=== PATIENT | female | born 1950 | race Caucasian/White ===

== ENCOUNTER 2020-03-29 11:05 | Outpatient (CLI) | payer MEDICARE, SELFPAY ==
--- NOTE | ~2020-03-29 | US_ITS ---
EXAMINATION: US venous doppler LE RT DATE: 03/29/2020 12:43 INDICATION: Right lower limb pain TECHNIQUE: Cespedes scale images without and with compression and Doppler images of the right lower extre mity veins were obtained. COMPARISON: None FINDINGS: The right common femoral vein, profunda femoral vein, femoral vein, popliteal vein, peronea l trunk, posterior tibial veins, and greater saphenous vein are patent. IMPRESSION: 1. Patent right lower extremity veins. No evidence of deep venous thrombosis. Reviewed, dictated and finalized at location B.
== END 2020-03-29 11:06 | disposition home or self-care (01) ==
PROVIDERS: PCP Family Medicine; Visit Provider Physician Assistant
DX: M79.604 Pain in right leg (principal); M25.512 Pain in left shoulder
CPT/HCPCS: 93971

== ENCOUNTER 2021-02-24 10:29 | Outpatient (CLI) | payer MEDICARE, SELFPAY ==
--- NOTE | ~2021-02-24 | MM_ITS ---
EXAMINATION: MM screening [facility] BI w obie HISTORY: Screening TECHNIQUE: Craniocaudal and mediolateral oblique 3-D tomosynthesis images were obtained and synthetic 2-D images were generated. CAD analysis was submitted and interpreted. COMPARISON: Comparison to multiple prior studies sequentially, with oldest reviewed study dated 02/2014. BREAST PARENCHYMAL COMPOSITION: There are scattered areas of fibroglandular density. FINDINGS: There is no evidence of suspicious mass, calcification, or architectural distortion to sugg est malignancy in either breast. There has been no suspicious interval change. IMPRESSION: 1. No mammographic evidence of malignancy. 2. Recommend routine screening mammography in one year. BI-RADS Category 1: Negative Reviewed, dictated and finalized at location A.
== END 2021-02-24 10:30 | disposition home or self-care (01) ==
LOC: ANHIMG 10:33
PROVIDERS: PCP Family Medicine; Visit Provider Physician Assistant
DX: Z12.31 Encounter for screening mammogram for malignant neoplasm of breast (principal)
CPT/HCPCS: 77063; 77067

== ENCOUNTER 2021-04-20 16:37 | Outpatient (CLI) | payer MEDICARE, SELFPAY ==
--- NOTE | ~2021-04-20 | DEXA_ITS ---
Bone Density Report Name: Debbie Gutierrez Age: 70 Sex: Female Ethnicity: White Date of : 1950 Indication: postmenopausal; rheumatoid arthritis; Referring Provider: Judy, Neelima Stockton Study: Bone densitometry was performed. Exam Date: April 20, 2021 Accession number: [id number] Bone Density: Region BMD T-score Z-score Classification AP Spine (L1-L4) 1.048 0.0 2.0 Normal Femoral Neck (Left) 0.814 -0.3 1.4 Normal Total Hip (Left) 1.034 0.8 2.2 Normal Total Hip Bilateral Avg 1.013 0.6 2.0 Normal Femoral Neck (Right) 0.845 0.0 1.7 Normal Total Hip (Right) 0.991 0.4 1.8 Normal World Health Organization criteria for BMD impression classify patients as: Normal (T-score at or above -1.0), Osteopenia (T-score between -1.0 and -2.5), or Osteoporosis (T-score at or below -2.5). 10-year Fracture Risk: FRAX not reported because: All T-scores for Spine Total, Hip Total, Femoral Neck at or above -1.0 Previous Exams: Region Exam Age BMD T-score BMD Change BMD Change Date g/cm2 vs Baseline vs Previous AP Spine(L1-L4) 04/20/2021 70 1.048 0.0 -0.014(-1.4%)# 0.007(0.7%) 07/25/2017 66 1.041 -0.1 -0.021(-2.0%)# -0.002(-0.2%)# 05/03/2010 59 1.043 0.0 -0.019(-1.8%) -0.019(-1.8%) 07/09/2005 54 1.062 0.1 Total Hip(Left) 04/20/2021 70 1.034 0.8 0.088(9.3%)# 0.014(1.3%) 07/25/2017 66 1.020 0.6 0.074(7.8%)# 0.052(5.4%)# 05/03/2010 59 0.968 0.2 0.022(2.3%) 0.022(2.3%) 07/09/2005 54 0.946 0.0 Total Hip(Right) 04/20/2021 70 0.991 0.4 0.028(3.0%)# -0.029(-2.8%)* 07/25/2017 66 1.020 0.6 0.057(6.0%)# 0.064(6.7%)# 05/03/2010 59 0.956 0.1 -0.007(-0.7%) -0.007(-0.7%) 07/09/2005 54 0.963 0.2 *Denotes significance at 95% confidence level, LSC for AP Spine = 0.022 g/cm2, LSC for Total Hip = 0.027 g/cm2 Clinical Information Provided by Patient: Has rheumatoid arthritis Has used the following medications: Vitamin D, Calcium Patient maximum height was 70 Menopause Age: 57 Drinks caffeinated beverages Onset of menses at age 15 Number of children 2 Impression: The patient has normal bone mass. The BMD for the Total Hip(Right) decreased, changing by -2.8% since the last DXA exam. Discussion: BONE DENSITY IS ABOVE THE MINIMUM DESIRABLE LEVEL AT ALL SKELETAL SITES TESTED. This patient?s bone mineral density is above the minimum desirable level (T-score -1.0 or be
== END 2021-04-20 16:38 | disposition home or self-care (01) ==
LOC: ANHIMG 16:38
PROVIDERS: PCP Family Medicine; Visit Provider Internal Medicine
DX: Z78.0 Asymptomatic menopausal state (principal); M35.01 Sjogren syndrome with keratoconjunctivitis; E03.8 Other specified hypothyroidism; Z51.81 Encounter for therapeutic drug level monitoring; E55.9 Vitamin D deficiency, unspecified; Z11.59 Encounter for screening for other viral diseases; M85.89 Other specified disorders of bone density and structure, multiple sites
CPT/HCPCS: 77080

== ENCOUNTER 2022-03-16 14:09 | Outpatient (CLI) | payer MEDICARE, SELFPAY ==
--- NOTE | ~2022-03-16 | MM_ITS ---
EXAMINATION: MM screening [facility] BI w obie HISTORY: Screening TECHNIQUE: Craniocaudal and mediolateral oblique 3-D tomosynthesis images were obtained and synthetic 2-D images were generated. CAD analysis was submitted and interpreted. COMPARISON: Comparison to multiple prior studies sequentially, with oldest reviewed study dated 02/2014. BREAST PARENCHYMAL COMPOSITION: There are scattered areas of fibroglandular density. FINDINGS: There is no evidence of suspicious mass, calcification, or architectural distortion to sugg est malignancy in either breast. There has been no suspicious interval change. IMPRESSION: 1. No mammographic evidence of malignancy. 2. Recommend routine screening mammography in one year. BI-RADS Category 1: Negative Reviewed, dictated and finalized at location A.
== END 2022-03-16 14:10 | disposition home or self-care (01) ==
LOC: ANHIMG 14:11
PROVIDERS: PCP Family Medicine; Visit Provider Physician Assistant
DX: Z12.31 Encounter for screening mammogram for malignant neoplasm of breast (principal)
CPT/HCPCS: 77063; 77067

== ENCOUNTER → 2022-04-12 12:38 | Outpatient (CLI) | payer MEDICARE, SELFPAY ==
--- NOTE | ~2022-04-12 | XR_ITS ---
XR hand LT min 3V DATE: 04/12/2022 12:58 INDICATION: Left hand and wrist pain TECHNIQUE: 3 views COMPARISON: 05/10/2018 bilateral hands FINDINGS: There is severe joint space narrowing and eburnation at the triscaphe joint consistent with osteoarthritis. Is mild osteoarthritic change at the interphalangeal joints and first carpometacarpa l joint. No fracture or dislocation, periosteal reaction or bone destruction. IMPRESSION: Polyarticular osteoarthritis Reviewed, dictated and finalized at location B.
--- NOTE | ~2022-04-12 | XR_ITS ---
XR wrist LT w scaphoid DATE: 04/12/2022 12:58 INDICATION: Left wrist and hand pain TECHNIQUE: 4 views COMPARISON: 05/10/2018 bilateral hands FINDINGS: There is severe narrowing and eburnation at the triscaphe joint consistent with severe oste oarthritis. No fracture or dislocation, periosteal reaction or bone destruction is detected. No erosive change. 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
== END ==
PROVIDERS: PCP Family Medicine; Visit Provider Family Medicine
DX: M25.532 Pain in left wrist (principal); M25.542 Pain in joints of left hand; M19.042 Primary osteoarthritis, left hand
CPT/HCPCS: 73110; 73130

== ENCOUNTER 2023-05-06 13:41 | Outpatient (CLI) | payer MEDICARE, SELFPAY ==
--- NOTE | ~2023-05-06 | MM_ITS ---
EXAMINATION: MM screening [facility] BI w obie HISTORY: Screening TECHNIQUE: Craniocaudal and mediolateral oblique 3-D tomosynthesis images were obtained and synthetic 2-D images were generated. CAD analysis was submitted and interpreted. COMPARISON: Comparison to multiple prior studies sequentially, with oldest reviewed study dated 03/08. BREAST PARENCHYMAL COMPOSITION: There are scattered areas of fibroglandular density. FINDINGS: There is no evidence of suspicious mass, calcification, or architectural distortion to sugg est malignancy in either breast. There has been no suspicious interval change. IMPRESSION: 1. No mammographic evidence of malignancy. 2. Recommend routine screening mammography in one year. BI-RADS Category 1: Negative Reviewed, dictated and finalized at location A.
== END 2023-05-06 13:42 | disposition home or self-care (01) ==
LOC: ANHIMG 13:45
PROVIDERS: PCP Emergency Medicine; Visit Provider Emergency Medicine
DX: Z12.31 Encounter for screening mammogram for malignant neoplasm of breast (principal)
CPT/HCPCS: 77063; 77067

== ENCOUNTER 2024-02-20 18:02 | Emergency (ER) | payer MEDICARE, SELFPAY ==
[2024-02-20 18:17] VITALS: BP 155/68; PULSE 60; RESP 18; TEMP 36.4; O2SAT 100
--- NOTE | 2024-02-20 18:17 | ECG_ITS ---
Test Date: 2024-02-20 18:30:31 Measurements Intervals [place] Rate: 58 P: 44 [place]: 161 QRS: -2 QRSD: 92 T: 33 QT: 452 QTc: 446 Interpretive Statements SINUS BRADYCARDIA NONSPECIFIC ST SEGMENT ABNORMALITY ABNORMAL ECG No previous ECG available for comparison Electronically Signed On 02-21-2024 11:16:08 CDT by Jimbo Mcgowan M.D.
--- NOTE | 2024-02-20 18:35 | PC.NURSE ---
1830 EKG complete. Pt is declining EMS trnsfer to ED. Pt called her son and he will take her to [place] ED. Rates pain at 8/10. VSS
--- NOTE | 2024-02-20 18:41 | ED.CHESTPAIN ---
HPI - Chest Pain General Chief Complaint: Chest Pain Stated Complaint: chest pain Time Seen by Provider: 02/20/24 18:17 Source: patient and RN notes reviewed Mode of arrival: ambulatory Limitations: no limitations History of Present Illness HPI narrative: Patient presents today complaining of lower sternal chest pain/epigastric pain, nausea that was present when she woke up from a nap at 2:00 p.m. this afternoon. Denies shortness of breath, dizziness, lightheadedness, numbness or tingling in the extremities. Denies any radiation of the pain to the back, jaw, arms. Currently rates her pain 8/10 and has tried Pepto-Bismol, Rolaids, Tums without relief. Pain increases with deep breath. Patient has history of hypertension and high cholesterol for which she takes atenolol, hydrochlorothiazide, and atorvastatin. She does have history of GERD for which she takes Pepcid. History of cholecystectomy. Related Data Home Medications Medication Instructions Recorded Confirmed cetirizine 10 mg tablet (Zyrtec) 10 mg PO DAILY 05/29/19 01/14/24 lysine 500 mg tablet 500 mg PO DAILY 05/29/19 01/14/24 multivitamin 1 tablet PO DAILY 05/29/19 01/14/24 Allergies Allergy/AdvReac Type Severity Reaction Status Date / Time grass pollen Allergy Unknown Sneezing Verified 01/14/24 10:05 pollen extracts Allergy Unknown Sneezing Verified 01/14/24 10:05 Review of Systems Review of Systems: CONSTITUTIONAL: Denies body aches, fever, chills, or sweats. EYES: Denies visual changes, redness, or discharge. ENT: Denies rhinorrhea, congestion, sore throat, or otalgia. CARDIOVASCULAR: Denies palpitations, or edema.+ chest pain RESPIRATORY: Denies cough or dyspnea. GASTROINTESTINAL: Denies vomiting, or diarrhea.+ abdominal pain, nausea GENITOURINARY: Denies dysuria or hematuria. SKIN: Denies rash, itching, or wounds. MUSCULOSKELETAL: Denies back pain, joint pain, or myalgia. NEUROLOGIC: Denies headache, numbness, tingling, or weakness. PSYCH: Denies depression or anxiety. [facility] Past Medical History Medical History GERD (gastroesophageal reflux disease) Hyperlipidemia Hypertension Hypothyroid Surgical History Surgical History History of cholecystectomy Family History Family History Father Diabetes mellitus Hypertension Mother Hypertension Family history of rheumatoid arthritis Social History Social History Smoking status: Never smoker Second hand tobacco smoke exposure: No Alcohol intake: current Substance use type: does not use Lack of Transportation: No Lack of Food: Never True Current Housing: I Have Housing Concerned About Future Housing: No Difficulty Paying Gas/Electric Bills: No Difficulty Paying for Meds: No Currently Unemployed: No Education: Bachelor's Degree Difficulty w/ Childcare or Family Care: No Gender identity (if verbalized by the patient): Female Comments At time of signature, I have reviewed and agree with nursing past medical, surgical, social and family history unless otherwise noted. Please see nursing chart for further information. There is no relevant family history pertinent to the presenting complaint Exam Narrative: GENERAL: Well-appearing, well-nourished, and in no acute distress. HEAD: Normocephalic, atraumatic. EYES: EOMI. No redness or drainage. Conjunctivae normal. ENT: Mucous membranes pink and moist. NECK: Normal AROM. CHEST: No respiratory distress. Clear to auscultation. Lower sternum mildly tender to palpation. HEART: Regular rate and rhythm. No murmur appreciated. Normal peripheral pulses. ABDOMEN: Soft, nondistended, normal active bowel sounds.Tenderness of bilateral upper abdomen to palpation without rebound or guarding. EXTREMITIES: Normal
--- NOTE | 2024-02-20 19:07 | PC.NURSE ---
1905 pt left urgent care with son to go to [facility]
== END 2024-02-20 19:08 | disposition short-term general hospital (02) ==
PROVIDERS: Emergency Provider Nurse Practitioner; PCP Emergency Medicine
DX: R07.9 Chest pain, unspecified (principal); K21.9 Gastro-esophageal reflux disease without esophagitis; E78.5 Hyperlipidemia, unspecified; I10 Essential (primary) hypertension; E03.9 Hypothyroidism, unspecified
CPT/HCPCS: 93005; 99213; G0463

== ENCOUNTER 2024-02-20 19:18 | Emergency (ER) | payer MEDICARE, SELFPAY ==
[2024-02-20] VITALS (24 sets, daily range): BP systolic 113–200; BP diastolic 58–109; PULSE 50–73; RESP 11–24; TEMP 36.2; O2SAT 84–100
--- NOTE | ~2024-02-20 | CT_ITS ---
EXAMINATION: CTA chest PE abdomen pel DATE: 02/20/2024 22:10 INDICATION: Chest pain. Abdominal pain. TECHNIQUE: Computed tomography (CT) pulmonary angiogram of the chest was performed with 100 mL Omnipa que-350 intravenous contrast. Additional 3D reconstructions utilizing coronal maximum intensity proje ction (MIP) were performed. CT of the abdomen and pelvis was performed with intravenous contrast util izing the same contrast bolus following a short delay. Automated exposure control and iterative recon struction technique were employed. The dose-length product was 798.29 mGy-cm. COMPARISON: 04/09/2012 FINDINGS: Chest: No pulmonary embolism. Mild dependent atelectasis in bilateral lower lobes. No pneumonia, pulmonary e aleah, pleural effusion or pneumothorax. Heart size is normal. The thoracic aorta is normal in caliber with no dissection. No pathologically enlarged thoracic lymphadenopathy. Mild thoracic spondylosis. Abdomen/pelvis: Mild intra and extra hepatic biliary ductal dilation likely related to prior cholecystectomy with renzo gical clips the gallbladder fossa. Spleen, pancreas, bilateral adrenal glands and right kidney are no rmal. There are a few left renal cysts the largest measuring 1.3 cm. Normal appendix. There are multi ple fluid-filled but not frankly dilated loops of small bowel throughout the central abdomen with dec ompressed small bowel approximately distally both a discrete transition point. There is however some pseudo feces within the dilated loops of bowel in the pelvis which can be seen with delayed transit. Extensive colonic diverticulosis with sigmoid and descending colon predominance but without adjacent inflammatory change to suggest diverticulitis. Small amount of likely reactive ascites in the pelvis. Bladder, anteverted uterus and bilateral adnexa are unremarkable. No pathologically enlarged abdomin al or pelvic lymphadenopathy. Mild to moderate thoracolumbar spondylosis. IMPRESSION: 1. No pulmonary embolism or other acute cardiopulmonary disease. 2. Fluid-filled but not likely dilated loops of central small bowel which could represent ileus or ea rly/partial small bowel obstruction. 3. Extensive diverticulosis without definitive discrete surrounding from trace stranding to suggest d iverticulitis. 4. Small amount of likely reactive ascites in the pelvis. 5. Mild intra and extrahepatic biliary ductal dilation most likely related to prior cholecystectomy w ith no evident obstructing stone or mass. Would however correlate with liver function tests. Reviewed, dictated and finalized at location A. IMPRESSION: 1. No pulmonary embolism or other acute cardiopulmonary disease. 2. Fluid-filled but not likely dilated loops of central small bowel which could represent ileus or early/partial small bowel obstruction. 3. Extensive diverticulosis without definitive discrete surrounding from trace stranding to suggest diverticulitis. 4. Small amount of likely reactive ascites in the pelvis. 5. Mild intra and extrahepatic biliary ductal dilation most likely related to p rior cholecystectomy with no evident obstructing stone or mass. Would however c orrelate with liver function tests.
--- NOTE | ~2024-02-20 | XR_ITS ---
EXAMINATION: XR chest 2V DATE: 02/20/2024 20:19 INDICATION: Chest pain TECHNIQUE: frontal and lateral views of the chest were obtained. COMPARISON: None FINDINGS: The lungs are clear with no focal airspace opacities, pulmonary edema, pleural effusion or pneumothor ax. The cardiomediastinal silhouette is normal. Likely cholecystectomy clips in the upper abdomen. IMPRESSION: 1. No acute cardiopulmonary disease. Reviewed, dictated and finalized at location A.
--- NOTE | 2024-02-20 19:41 | ECG_ITS ---
Test Date: 2024-02-20 20:27:09 Measurements Intervals [place] Rate: 52 P: 32 FL: 150 QRS: 3 QRSD: 94 T: 10 QT: 458 QTc: 426 Interpretive Statements SINUS BRADYCARDIA MINIMAL ST DEPRESSION [0.025+ mV ST DEPRESSION] BORDERLINE ECG Compared to ECG 02/20/2024 18:30:31 No significant changes Electronically Signed On 02-21-2024 11:20:08 CDT by Jimbo Mcgowan M.D.
--- NOTE | 2024-02-20 20:11 | ED.GENADULT ---
HPI - General Adult General Chief complaint: Chest Pain Stated complaint: chest pain Time Seen by Provider: 02/20/24 19:51 History of Present Illness HPI narrative: Patient 73-year-old female presents emergency department with chief complaint chest/epigastric. Patient reports that she laid down for a nap around noon and woke up around 2:00 p.m. with pain in the epigastric region. Patient reports that felt like acid reflux which she does have history of reflux reports she attempted multiple different things to try to alleviate the discomfort about the symptoms have persisted throughout the evening. Patient denies diaphoresis denies shortness of breath reports she has no prior history of cardiac disease but does have history of hypertension Related Data Home Medications Medication Instructions Recorded Confirmed cetirizine 10 mg tablet (Zyrtec) 10 mg PO DAILY 05/29/19 01/14/24 lysine 500 mg tablet 500 mg PO DAILY 05/29/19 01/14/24 multivitamin 1 tablet PO DAILY 05/29/19 01/14/24 Allergies Allergy/AdvReac Type Severity Reaction Status Date / Time grass pollen Allergy Unknown Sneezing Verified 02/20/24 19:46 pollen extracts Allergy Unknown Sneezing Verified 02/20/24 19:46 Review of Systems Review of Systems: A 10 system review of systems was completed on the patient and is negative except for what is stated in the HPI. Nursing and ancillary documentation was reviewed. [facility] Past Medical History Medical History GERD (gastroesophageal reflux disease) Hyperlipidemia Hypertension Hypothyroid Surgical History Surgical History History of cholecystectomy Family History Family History Father Diabetes mellitus Hypertension Mother Hypertension Family history of rheumatoid arthritis Social History Social History Smoking status: Never smoker Second hand tobacco smoke exposure: No Alcohol intake: current Substance use type: does not use Lack of Transportation: No Lack of Food: Never True Current Housing: I Have Housing Concerned About Future Housing: No Difficulty Paying Gas/Electric Bills: No Difficulty Paying for Meds: No Currently Unemployed: No Education: Bachelor's Degree Difficulty w/ Childcare or Family Care: No Gender identity (if verbalized by the patient): Female Exam Narrative: GENERAL: Well-appearing, well-nourished, and in no acute distress. HEAD: Normocephalic, atraumatic. EYES: PERRLA and EOMI. ENT: Nares clear, no rhinorrhea or epistaxis. Mucous membranes moist. NECK: Supple. CHEST: Clear to auscultation. No respiratory distress. HEART: Regular rate and rhythm. No murmur heard. Normal peripheral pulses. ABDOMEN: Soft, nontender, nondistended, normal active bowel sounds. EXTREMITIES: Normal range of motion. No edema. SKIN: Warm, dry, no rash. NEURO: No focal deficits. Alert and oriented x3. PSYCH: Normal mood and affect. Course Vital Signs Vital signs: Vital Signs Temperature 36.2 C L 02/20/24 19:25 Pulse Rate 54 L 02/20/24 19:25 Respiratory Rate 20 02/20/24 19:25 Blood Pressure 151/68 H 02/20/24 19:25 Pulse Oximetry 99 02/20/24 19:25 Oxygen Delivery Room Air 02/20/24 19:25 Temperature 36.2 C L 02/20/24 19:25 Pulse Rate 65 02/20/24 21:32 Respiratory Rate 22 H 02/20/24 21:32 Blood Pressure 200/80 H 02/20/24 21:32 Pulse Oximetry 84 L 02/20/24 21:49 Oxygen Delivery Nasal Cannula 02/20/24 21:49 Oxygen Flow Rate 2 02/20/24 21:49 Medical Decision Making MDM Narrative Medical decision making narrative: Differential diagnosis includes ACS, intra-abdominal infection, pancreatitis, diverticulitis, Laboratory studies were obtained on the patient showed a CBC
[2024-02-20 20:15] LABS: Basophils Percent Auto 0.3 % (0.2-1.2); Eosinophils Absolute Auto 0.2 K/mm3 (0-0.3); Eosinophils Percent Auto 1.3 % (0-4.4); Hematocrit 47.4 % (37.0-47.0); Hemoglobin 16.1 g/dL (12.0-15.0); Immature Granulocyte Absolute 0.06 K/mm3 (0.00-0.031); Immature Granulocyte Percent A 0.4 % (0-0.5); Lymphocytes Absolute Auto 1.25 K/mm3 (0.9-3.2); Lymphocytes Percent Auto 9.1 % (18.3-44.2); Mean Corpuscular Hemoglobin 31.8 pg (26-34); Mean Corpuscular Volume 93.5 fl (80-100); Mean Platelet Volume 11.1 fl (7.4-10.4); Monocytes Absolute Auto 0.8 K/mm3 (0.1-0.6); Neutrophils Absolute Auto 11.4 K/mm3 (1.3-6.7); Neutrophils Percent Auto 82.9 % (45.5-73.1); Platelet Count Result 222 k/mm3 (150-375); Red Blood Count 5.07 M/mm3 (4.2-5.4); Red Cell Distribution Width 11.5 % (11.5-14.5); White Blood Count 13.8 K/mm3 (4.5-10.0)
[2024-02-20 20:27] LABS: Alanine Aminotransferase 38 U/L (6-35); Alkaline Phosphatase 64 U/L (38-126); Anion Gap 11 mmol/L (4-12); Aspartate Amino Transferase 38 U/L (14-36); Bilirubin,Total 0.7 mg/dL (0.2-1.3); Blood Urea Nitrogen 18 mg/dL (7-17); Calcium 10.1 mg/dL (8.4-10.2); Carbon Dioxide 33 mmol/L (22-30); Chloride 97 mmol/L (98-107); Estimated CRCL calculation 61 ml/min; Estimated Glomerular Filt Rate > 60; Glucose 112 mg/dL (65-110); INR 0.9; Lipase 47 U/L (23-300); Potassium 3.3 mmol/L (3.4-5.0); Prothrombin Time 12.1 Seconds (11.1-14.7); Sodium 141 mmol/L (137-145)
[2024-02-20 20:28] LABS: Partial Thromboplastin Time 24.3 Seconds (22.3-36.8)
[2024-02-20 20:37] LABS: Troponin I < 0.012 ng/mL (0.000-0.034)
[2024-02-20] MEDS: BELLADONNA ALK/PHENOB ELIX 10 ML, MAG HYDROX/ALUMINUM HYD/SIMETH 30 ML, LIDOCAINE HCL 2... PO (20:53)
--- NOTE | 2024-02-20 20:55 | PC.NURSE ---
marianna gutierrez [id number] stat x 1
[2024-02-20] MEDS: ONDANSETRON INJ 4 MG/2 ML VIAL IV PUSH (20:58)
[2024-02-20] MEDS: MORPHINE SULFATE (*CRX) 4 MG/ML INJ 2 MG IV PUSH (21:35)
[2024-02-20] MEDS: PROCHLORPERAZINE EDISYLATE 10 MG/2 ML VIAL IV PUSH (21:35)
[2024-02-20] MEDS: SODIUM CHLORIDE 0.9% IV 100 ML 60 ML (21:36)
--- NOTE | 2024-02-20 21:49 | PC.NURSE ---
Pt had low oxygen level after initial dose of pain medication. Pt placed on 2lnc at this time. Pt o2 level increased to 100% immediately.
--- NOTE | 2024-02-20 22:41 | ECG_ITS ---
Test Date: 2024-02-20 22:29:10 Measurements Intervals [place] Rate: 64 P: 56 SC: 161 QRS: -11 QRSD: 93 T: 25 QT: 461 QTc: 477 Interpretive Statements SINUS RHYTHM POSSIBLE LEFT ATRIAL ENLARGEMENT [-0.1mV P-WAVE IN V1/V2] MINIMAL ST DEPRESSION [0.025+ mV ST DEPRESSION] BORDERLINE ECG Compared to ECG 02/20/2024 20:27:09 NO SIGNIFICANT DIFFERENCE Electronically Signed On 02-21-2024 11:23:05 CDT by Jimbo Mcgowan M.D.
[2024-02-20 22:55] LABS: Troponin I < 0.012 ng/mL (0.000-0.034)
[2024-02-21] VITALS: PULSE 59; RESP 15; O2SAT 98
[2024-02-21 00:09] VITALS: BP 133/60; PULSE 52; RESP 16; TEMP 36.4; O2SAT 97
== END 2024-02-21 00:10 | disposition home or self-care (01) ==
PROVIDERS: Emergency Provider Emergency Medicine; PCP Emergency Medicine
DX: R10.13 Epigastric pain (principal); R07.9 Chest pain, unspecified; E78.5 Hyperlipidemia, unspecified; I10 Essential (primary) hypertension; E03.9 Hypothyroidism, unspecified
CPT/HCPCS: 36415; 71046; 71275; 74177; 80053; 83690; 84484; 85025; 85610; 85730; 93005; 96361; 96374; 96375; 99284; A9270; J0780; J2270; J2405; Q9967

== ENCOUNTER 2025-04-15 08:44 | Outpatient (CLI) | payer MEDICARE, SELFPAY ==
--- NOTE | ~2025-04-15 | MM_ITS ---
EXAMINATION: MM screening deann BI w obie HISTORY: Screening TECHNIQUE: Craniocaudal and mediolateral oblique 3-D tomosynthesis images were obtained and synthetic 2-D images were generated. CAD analysis was submitted and interpreted. COMPARISON: Comparison to multiple prior studies sequentially, with oldest reviewed study dated , 07/25/2017 BREAST PARENCHYMAL COMPOSITION: There are scattered areas of fibroglandular density. FINDINGS: There is no evidence of suspicious mass, calcification, or architectural distortion to suggest malignancy in either breast. IMPRESSION: 1. No mammographic evidence of malignancy. 2. Recommend routine screening mammography in one year. BI-RADS Category 1: Negative Reviewed, dictated and finalized at location B.
--- OUTSIDE RECORDS SUMMARY | 2025-04-15 08:59 | XMS_ITS | Clinical Summary ---
Author Organization [facility] Address [address] 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 0 Active lysine 500 mg tablet 1 tablet (500 mg total) Active multivit-min/jaqueline lorena fumarate (MULTI VITAMIN ORAL) Take by mouth Active eye lubricant combination no.1 (FRESHKOTE) 2-0.9-1.8 % drops Administer into affected eye(s) Active triamcinolone (KENALOG) 0.1 % cream APPLY TOPICALLY TO THE AFFECTED AREA TWICE DAILY 1 Active cetirizine (ZyrTEC) 10 mg tablet Take 1 tablet (10 mg total) by mouth daily Active diclofenac sodium (VOLTAREN) 1 % gel APPLY 4 GRAMS TOPICALLY TO THE AFFECTED AREA FOUR TIMES DAILY 2 Active hydroCHLOROthiaz nathan (HYDRODIURIL) 25 mg tablet Take 1 tablet (25 mg total) by mouth daily 3 Active potassium chloride ER 10 mEq CR capsule Take by mouth daily 3 Active hydroxychloroqui ne (PLAQUENIL) 200 mg tablet Take 1 tablet (200 mg total) by mouth daily 90 tablet 1 5 Active Active Problems Problem Noted Date Diagnosed Date Allergies 01/04/2020 Mild asthma 01/04/2020 Hypertension Hypothyroidism IBS (irritable bowel syndrome) Seropositive rheumatoid arthritis of multiple abhay ints Immunizations Immunization Administration Dates Next Due Influenza, Quadrivalent, Hig h Dose, Preservative Free, Intrr 04/30/2023 Pfizer SARS-CoV-2 Monovalent Vaccination (12+ Yrs) PURPLE 05/10/2021,10/14/2020,09/16/2020 Pneumococcal Conjugate PCV 13 05/07/2019 Surgical History Surgery Date Site/Laterality Comments TONSILLECTOMY GALLBLADDER SURGERY Medical History Medical History Date Comments Hypertension Acid reflux Arthritis Sjogren's disease Family History Medical History Relation Name Comments Diabetes Father Heart disease Father Arthritis Mother COPD Mother Heart disease Mother Hypertension Sister Relation Name Status Comments Father Mother Sister Social History Tobacco Use Types Packs/Day Years Used Date Smoking Tobacco: Never Smokeless Tobacco: Never Tobacco Cessation:Counseling Given: Not Answered Alcohol Use Standard Drinks/Week Comments Never 0 (1 standard drink = 0.6 oz pur e alcohol) AUDIT-C Answer Date Recorded Q1: How often do you have a drink containing alc ohol? 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 Gender Identity Female 03/14/2021 9:54 AM CDT Sexual Orientation Straight 03/14/2021 9: 54 AM CDT Occupation Industry Job Start Date Job End Date retired Not on file Not on file Not on file Obstetrics History Last Filed Vital Signs Vital Sign Reading Time Taken Comments Blood Pressure 116/74 04/30/2024 11:00 AM CDT Pulse 72 04/30/2024 11:00 AM CDT Temperature 36.6 C (97.8 F) 04/30/2023 11:21 AM CDT Respiratory Rate 18 04/30/2023 11:21 AM CDT Oxygen Saturation 98% 04/30/2024 11:00 AM CDT Inhaled Oxygen Concentration - - Weight 81.2 kg (179 lb) 04/30/2024 11:00 AM CDT Height 178.8 cm (5' 10.39) 04/30/2024 11:00 AM CDT Body Mass Index 25.4 04/30/2024 11:00 AM CDT Plan of Treatment Health Maintenance Due Date Last Done Comments Breast Cancer Screening-Mammogram 1950 Colon Cancer Screening-Colonoscopy 1950 Depression Screening 1950 Osteoporosis Screening-Bone Density Scan 1950 DTaP/Tdap/Td Vaccine (1 - Tdap) 11/29/1963 Hepatitis B Screening 1970 Zoster Vaccine (1 of 2) 11/29/1971 Well Visit 65+ 2017 Pneumococcal vaccine 65+ (2 of 2 - PPSV23, PCV20, or PCV21) 07/02/2019 05/07/2019 Fall Risk Assessment 01/03/2021 01/04/2020 Covid-19 Vaccine ( - season) 2025 05/10/2021, 10/14/2020, 09/16/2020 Influenza Vaccine (#1) 2025 04/28/2024, 2022 Hepatitis C Screening Completed 03/21/2021 Procedures Procedure Name Priority Date/Time Associated Diagnosis Comments HEPATITIS C ANTIBODY Routine 03/21/2021 2:12 PM CDT Sjogren's syndrome with keratoconjunctivitis sicca Other specified hypothyroidism Encounter for medication monitoring Vaccine counseling Hypovitaminosis D from Last 3 Months or Most Recently Relevant to Health Maintenance Results * Hepatitis C antibody (03/21/2021 2:12 PM CDT) Hep C Ab Nonreactive Nonreactive [facility] Comment: Interpretive Data Nonreactive: Antibodies to HCV not detected. Does NOT exclude the possibility of recent exposure to HCV. Equivocal: Equivocal for HCV antibodies. Supplemental molecular testing will be automatically performed to determine infection status in accordance with current CDC screening recommendations. Reactive: Positive for HCV antibodies. This may represent current or past HCV infection. Supplemental molecular testing will be automatically performed to determine current infection status in accordance with current CDC screening recommendations. Interpretive data was last revised on 2019. Blood 03/21/2021 2:12 PM CDT 03/21/2021 4:04 PM CDT us Neelima Robertson MD LAB MICROBIOLOGY - GENERAL ORDERABLES Final Result [facility] [address] Department [place] [address] from Last 3 Months or Most Recently Relevant to Health Maintenance Insurance MEDICARE [facility] MEDICARE [facility] Care Teams Advanced Practice Rn Relationship Specialty Start Date End Date Efren Francisco MD [facility] [facility] [address] [place] [id number] PCP - General Family Medicine 04/30/23
== END 2025-04-15 08:45 | disposition home or self-care (01) ==
LOC: ANHFOHIMG 08:47
PROVIDERS: PCP Family Medicine; Visit Provider Family Medicine
DX: Z12.31 Encounter for screening mammogram for malignant neoplasm of breast (principal)
CPT/HCPCS: 77063; 77067